=== PATIENT | female | born 1955 | race Caucasian/White ===

== ENCOUNTER → 2016-05-04 | Outpatient (CLI) | payer OTHER ==
[~2016-05-04] MED LIST: ASPI1TAB PO; CITRICAL; D 50CAP PO; FERR325T3 PO; FISH100049 PO; FLUOCINONIDE; FURO20TA2 PO; GELN10GE TD; GLUC1CAP9 PO; IRBE150T12 PO; KETO2CR EXT; MULTTAB PO; NYST10CR EXT; PRAV10TA PO; PROT1TAB2 PO; VALA500T PO; VITA100T86 PO; ZYRT10TA2 PO; [UNRECOGNIZED DRUG - CODE]; [UNRECOGNIZED DRUG - OTHER] PO
--- NOTE | 2016-05-05 11:23 | REP ---
Left knee five views: There are no comparisons. There is no fracture or dislocation. There is no hemarthrosis. Mineralization is normal. There is mild tricompartment osteoarthritis. There are no calcifications or foreign bodies. Signed by Blake Carlton MD 05/04/2016 02:51 P
== END ==
LOC: M WUC 14:19
PROVIDERS: ATTEND Physician Assistant
DX: S80.02XA Contusion of left knee, initial encounter (principal); X58.XXXA Exposure to other specified factors, initial encounter; Y92.89 Other specified places as the place of occurrence of the external cause; Y93.89 Activity, other specified; Y99.8 Other external cause status

== ENCOUNTER → 2016-06-01 | Outpatient (CLI) | payer OTHER ==
[2016-06-01 11:44] LABS: BASO # 0.1 K/mm3 (0.0-0.2); BASO % 1.5 % (0.0-1.0); EOS # 0.4 K/mm3 (0.0-0.50); EOS % 7.9 % (0.0-3.0); LARGE UNSTAINED CELL # 0.1 K/mm3 (0.0-0.4); LARGE UNSTAINED CELL % 2.5 % (0.0-4.0); LYMPH # 1.6 K/mm3 (1.5-4.5); MEAN CORPUSCULAR HEMOGLOBIN 33.3 pg (27.0-33.0); MEAN CORPUSCULAR HGB CONC 33.1 g/dl (32.0-36.5); MEAN CORPUSCULAR VOLUME 100.6 fl (80.0-96.0); MONO # 0.3 K/mm3 (0.0-0.8); MONO % 6.4 % (0.0-5.0); NEUTROPHILS # 2.6 K/mm3 (1.8-7.7); NEUTROPHILS % 52.8 % (36.0-66.0); PLATELET COUNT, AUTOMATED 317 k/mm3 (150-450); RED CELL DISTRIBUTION WIDTH 11.8 % (11.5-14.5)
[2016-06-01 12:09] LABS: ALBUMIN 3.8 GM/DL (3.2-5.2); ALBUMIN/GLOBULIN RATIO 1.23 (1.00-1.93); ALKALINE PHOSPHATASE 85 U/L (45-117); ALT/SGPT 26 U/L (12-78); ANION GAP 9 MEQ/L (8-16); AST/SGOT 15 U/L (15-37); BILIRUBIN,TOTAL 0.6 MG/DL (0.2-1.0); BLOOD UREA NITROGEN 20 MG/DL (7-18); CARBON DIOXIDE LEVEL 29 MEQ/L (21-32); CHLORIDE LEVEL 107 MEQ/L (98-107); CHOLESTEROL LEVEL 181 MG/DL (<200); GLOMERULAR FILTRATION RATE > 60.0 (>51); GLUCOSE, FASTING 87 MG/DL (70-105); POTASSIUM SERUM 4.6 MEQ/L (3.5-5.1); SODIUM LEVEL 145 MEQ/L (136-145); TOTAL PROTEIN 6.9 GM/DL (6.4-8.2); TRIGLYCERIDES LEVEL 75 MG/DL (<150)
== END ==
LOC: M WUC 10:25
PROVIDERS: ATTEND Nurse Practitioner Family
DX: I10 Essential (primary) hypertension (principal); E78.00 Pure hypercholesterolemia, unspecified

== ENCOUNTER → 2016-07-02 | Outpatient (CLI) | payer OTHER ==
[~2016-07-02] MED LIST changes: +ISOVUE-370 76% 100ML VIAL (Q9967) As Ordered ONE
--- NOTE | 2016-07-02 10:00 | REP ---
CT ANGIO NECK: HISTORY: Right brachiocephalic artery aneurysm. CONTRAST: Isovue 370, 75 mL. COMPARISON: 03/23/2013. A calcified atherosclerotic plaque is present at the origin of the right internal carotid artery. There is mild stenosis of 10% of the right internal carotid artery at its origin. The origin of the right external carotid artery is normal. A calcified atherosclerotic plaque is present at the origin of the left internal carotid artery. There is no significant stenosis. The origin of the left external carotid artery is normal. The vertebral arteries are equal in size and patent. Calcified atherosclerotic plaques are present in the aortic arch. The origins of the left subclavian, left common carotid, innominate and right common carotid arteries are normal. There is at least mild stenosis at the origin of the right subclavian artery. The left vertebral artery arises from the aortic arch. There is minimal fusiform dilatation of the right brachiocephalic artery. IMPRESSION: 1. Mild stenosis of 10% of the right internal carotid artery at its origin. 2. Normal left carotid bifurcation. 3. There is minimal fusiform dilatation of the right brachiocephalic artery. Signed by Salomón Veras MD 07/02/2016 10:12 A
== END ==
LOC: M RAD 08:32
PROVIDERS: ATTEND Nurse Practitioner Family
DX: I72.0 Aneurysm of carotid artery (principal)
CPT/HCPCS: 70498; Q9967

== ENCOUNTER → 2016-07-10 | Outpatient (CLI) | payer OTHER ==
[~2016-07-10] MED LIST changes: -ISOVUE-370 76% 100ML VIAL (Q9967) As Ordered ONE
--- NOTE | 2016-07-10 18:11 | REP ---
CT of the left knee without IV contrast: Comparison is the plain film study dated 05/04/2016. Axial images are acquired helical scanning and reformatted sagittal coronal projections. There are small osteophytes at the margins of the patella, femoral condyles and tibial plateau compatible with mild tricompartment osteoarthritis. There is no joint space narrowing. There is no effusion. Mineralization is normal. There are no calcifications or foreign bodies. Impression: Tricompartment osteoarthritis. Radiographically, this appears mild. Signed by Blake Carlton MD 07/10/2016 06:03 P
== END ==
LOC: M RAD 17:09
PROVIDERS: ATTEND Physician Assistant Surgical
DX: M17.12 Unilateral primary osteoarthritis, left knee (principal)

== ENCOUNTER → 2016-12-05 | Outpatient (CLI) | payer OTHER ==
[~2016-12-05] MED LIST changes: -PRAV10TA PO; +PRAV10TA4 PO; -VALA500T PO; +VALA500T2 PO
--- NOTE | 2016-12-06 09:43 | REP ---
Clinical: Transient ischemic attack with history of hypertension. Technique: Reina scale and color Doppler evaluation using linear high frequency transducer Findings: Two-dimensional reina scale and color images demonstrate mild age-related intimal thickening and minimal mixed atheromatous plaquing with laminar flow and no appreciable narrowing. Color Doppler interrogation demonstrates normal arterial wave patterns and velocities with mild spectral broadening. Normal flow direction is appreciated in the bilateral vertebral arteries. RIGHT (cm/s) LEFT (cm/s) ICA peak systolic velocity 83.4 78.4 ICA diastolic velocity 34.1 27.7 ECA peak systolic velocity 71.7 75.3 CCA peak systolic velocity 82.3 77.1 ICA/CCA ratio 1.0 1.0 Impression: No hemodynamically significant areas of narrowing or stenosis appreciated. Based on set standards narrowing falls within the less than 50% range. Signed by Olvin Bhagat MD 12/06/2016 09:34 A
== END ==
LOC: M RAD 16:06
PROVIDERS: ATTEND Nurse Practitioner Family
DX: R55 Syncope and collapse (principal)

== ENCOUNTER → 2016-12-07 | Outpatient (CLI) | payer OTHER ==
[2016-12-07 18:20] LABS: BASO # 0.1 K/mm3 (0.0-0.2); BASO % 1.4 % (0.0-1.0); EOS # 0.3 K/mm3 (0.0-0.50); EOS % 6.9 % (0.0-3.0); LARGE UNSTAINED CELL # 0.1 K/mm3 (0.0-0.4); LARGE UNSTAINED CELL % 2.8 % (0.0-4.0); LYMPH # 1.5 K/mm3 (1.5-4.5); LYMPH % 34.3 % (24.0-44.0); MEAN CORPUSCULAR HEMOGLOBIN 34.2 pg (27.0-33.0); MEAN CORPUSCULAR HGB CONC 33.3 g/dl (32.0-36.5); MEAN CORPUSCULAR VOLUME 102.6 fl (80.0-96.0); MONO # 0.3 K/mm3 (0.0-0.8); MONO % 7.5 % (0.0-5.0); NEUTROPHILS # 2.1 K/mm3 (1.8-7.7); NEUTROPHILS % 47.1 % (36.0-66.0); PLATELET COUNT, AUTOMATED 316 k/mm3 (150-450); RED CELL DISTRIBUTION WIDTH 11.8 % (11.5-14.5); WHITE BLOOD COUNT 4.4 K/mm3 (4.0-10.0)
[2016-12-07 18:42] LABS: ALBUMIN 3.9 GM/DL (3.2-5.2); ALBUMIN/GLOBULIN RATIO 1.22 (1.00-1.93); ALKALINE PHOSPHATASE 86 U/L (45-117); ALT/SGPT 26 U/L (12-78); ANION GAP 9 MEQ/L (8-16); AST/SGOT 12 U/L (15-37); BILIRUBIN,TOTAL 0.5 MG/DL (0.2-1.0); BLOOD UREA NITROGEN 23 MG/DL (7-18); CARBON DIOXIDE LEVEL 29 MEQ/L (21-32); CHLORIDE LEVEL 107 MEQ/L (98-107); CHOLESTEROL LEVEL 183 MG/DL (<200); GLOMERULAR FILTRATION RATE > 60.0 (>45); GLUCOSE, FASTING 88 MG/DL (80-110); POTASSIUM SERUM 4.7 MEQ/L (3.5-5.1); SODIUM LEVEL 145 MEQ/L (136-145); TOTAL PROTEIN 7.1 GM/DL (6.4-8.2); TRIGLYCERIDES LEVEL 51 MG/DL (<150)
== END ==
LOC: M WUC 09:10
PROVIDERS: ATTEND Nurse Practitioner Family
DX: I10 Essential (primary) hypertension (principal); E21.3 Hyperparathyroidism, unspecified; E55.9 Vitamin D deficiency, unspecified; Z13.1 Encounter for screening for diabetes mellitus

== ENCOUNTER → 2017-08-08 | Outpatient (REF) | payer OTHER | LOC: M LABWUC 14:28 | DX: M54.5 Low back pain (principal) ==

== ENCOUNTER → 2017-08-14 | Outpatient (REF) | payer OTHER ==
[2017-08-14 16:32] LABS: APPEARANCE, URINE CLEAR (CLEAR); BACTERIA, URINE AUTO NEGATIVE (NEGATIVE); BILIRUBIN, URINE AUTO NEGATIVE (NEGATIVE); BLOOD, URINE BLOOD NEGATIVE (NEGATIVE); COLOR, URINE COLORLESS (YELLOW); GLUCOSE, URINE (UA) AUTO NEGATIVE (NEGATIVE); KETONE, URINE AUTO NEGATIVE (NEGATIVE); LEUKOCYTE ESTERASE, URINE AUTO NEGATIVE (NEGATIVE); NITRITE, URINE AUTO NEGATIVE (NEGATIVE); PROTEIN, URINE AUTO NEGATIVE (NEGATIVE); RBC, URINE AUTO 0 /HPF (0-3); SPECIFIC GRAVITY URINE AUTO 1.002 (1.002-1.035); SQUAMOUS EPITHELIAL CELL UR AU 0 /HPF (0-6); UROBILINOGEN, URINE AUTO 0.2 mg/dL (0.0-2.0); WBC, URINE AUTO 0 /HPF (0-3)
== END ==
LOC: M LAB REF 16:21
DX: N32.81 Overactive bladder (principal); N39.41 Urge incontinence

== ENCOUNTER → 2018-01-04 | Outpatient (REF) | payer OTHER ==
[2018-01-04 12:39] LABS: HEMATOCRIT 36.5 % (36.0-47.0); MEAN CORPUSCULAR HEMOGLOBIN 33.2 pg (27.0-33.0); MEAN CORPUSCULAR HGB CONC 32.9 g/dl (32.0-36.5); MEAN CORPUSCULAR VOLUME 101.1 fl (80.0-96.0); PLATELET COUNT, AUTOMATED 300 10^3/uL (150-450); RED BLOOD COUNT 3.61 10^6/uL (4.00-5.40); RED CELL DISTRIBUTION WIDTH 12.1 % (11.5-14.5); WHITE BLOOD COUNT 4.7 10^3/uL (4.0-10.0)
[2018-01-04 13:01] LABS: ALBUMIN 3.9 GM/DL (3.2-5.2); ALBUMIN/GLOBULIN RATIO 1.39 (1.00-1.93); ALKALINE PHOSPHATASE 71 U/L (45-117); ALT/SGPT 23 U/L (12-78); ANION GAP 6 MEQ/L (8-16); AST/SGOT 15 U/L (7-37); BILIRUBIN,TOTAL 0.4 MG/DL (0.2-1.0); BLOOD UREA NITROGEN 26 MG/DL (7-18); CALCIUM LEVEL 9.3 MG/DL (8.8-10.2); CARBON DIOXIDE LEVEL 30 MEQ/L (21-32); CHLORIDE LEVEL 104 MEQ/L (98-107); CHOLESTEROL LEVEL 208 MG/DL (<200); CHOLESTEROL RISK RATIO 2.476 (<5); CREATININE FOR GFR 0.72 MG/DL (0.55-1.30); FERRITIN 183 NG/ML (8-252); GLOMERULAR FILTRATION RATE > 60.0 (>45); GLUCOSE, FASTING 85 MG/DL (70-100); HDL CHOLESTEROL 84 MG/DL (>40); IRON (FE) 158 UG/DL (50-170); LDL CHOLESTEROL 114 MG/DL (<100); MAGNESIUM LEVEL 2.3 MG/DL (1.8-2.4); NON-HDL-C 124 MG/DL; PERCENT SATURATION 55.2 % (13.2-45.0); POTASSIUM SERUM 4.7 MEQ/L (3.5-5.1); SODIUM LEVEL 140 MEQ/L (136-145); TOTAL IRON BINDING CAPACITY 286 UG/DL (250-450); TOTAL PROTEIN 6.7 GM/DL (6.4-8.2); TRIGLYCERIDES LEVEL 49 MG/DL (<150)
[2018-01-04 13:36] LABS: TOTAL 25(OH) VITAMIN D 52.2 NG/ML (30.0-100.0)
[2018-01-04 13:39] LABS: CREATININE, URINE 96.9 MG/DL; MALB URINE SIEMENS 6.3 MG/L
[2018-01-04 13:45] LABS: MAU/CREAT RATIO 6.5 MCG/MG (0.0-30.0)
== END ==
LOC: M SFHCPLAZ 09:10
DX: D50.8 Other iron deficiency anemias (principal); G47.33 Obstructive sleep apnea (adult) (pediatric); R25.2 Cramp and spasm; E55.9 Vitamin D deficiency, unspecified; I10 Essential (primary) hypertension; E78.00 Pure hypercholesterolemia, unspecified

== ENCOUNTER → 2018-03-17 | Outpatient (CLI) | payer OTHER ==
[2018-03-17 13:38] LABS: FOLATE > 24.0 NG/ML; FREE T4 1.01 NG/DL (0.76-1.46); VITAMIN B12 LEVEL 925 PG/ML
== END ==
LOC: M WUC 10:23
DX: G47.62 Sleep related leg cramps (principal)
CPT/HCPCS: 82746

== ENCOUNTER → 2018-10-10 | Outpatient (CLI) | payer OTHER ==
[~2018-10-10] MED LIST changes: -ASPI1TAB PO; +ASPI81TA26 PO; +FLUO1SOL; -GELN10GE TD; -VALA500T2 PO; +VALA500T5 PO; +ZYRT10CA5 PO; -ZYRT10TA2 PO; -[UNRECOGNIZED DRUG - CODE]; +[UNRECOGNIZED DRUG - CODE] TD
[2018-10-10 17:30] LABS: EOS # 0.2 10^3/uL (0.0-0.50); EOS % 4.5 % (0.0-3.0); HEMATOCRIT 38.9 % (36.0-47.0); HEMOGLOBIN 12.7 g/dl (12.0-15.5); LYMPH # 0.8 10^3/uL (1.5-4.5); MEAN CORPUSCULAR HEMOGLOBIN 34.2 pg (27.0-33.0); MEAN CORPUSCULAR HGB CONC 32.6 g/dl (32.0-36.5); MEAN CORPUSCULAR VOLUME 104.9 fl (80.0-96.0); MONO # 0.5 10^3/uL (0.0-0.8); MONO % 11.8 % (0.0-5.0); NEUTROPHILS # 2.5 10^3/uL (1.8-7.7); NEUTROPHILS % 62.4 % (36.0-66.0); PLATELET COUNT, AUTOMATED 239 10^3/uL (150-450); RED BLOOD COUNT 3.71 10^6/uL (4.00-5.40)
[2018-10-10 17:45] LABS: ALBUMIN 3.9 GM/DL (3.2-5.2); ALT/SGPT 32 U/L (12-78); BILIRUBIN,TOTAL 0.2 MG/DL (0.2-1.0); BLOOD UREA NITROGEN 16 MG/DL (7-18); CALCIUM LEVEL 8.3 MG/DL (8.8-10.2); CARBON DIOXIDE LEVEL 29 MEQ/L (21-32); CHLORIDE LEVEL 104 MEQ/L (98-107); CREATININE FOR GFR 0.59 MG/DL (0.55-1.30); FREE T4 0.85 NG/DL (0.76-1.46); GLOMERULAR FILTRATION RATE > 60.0 (>45); GLUCOSE, FASTING 74 MG/DL (70-100); POTASSIUM SERUM 4.4 MEQ/L (3.5-5.1); SODIUM LEVEL 142 MEQ/L (136-145)
[2018-10-13 00:06] LABS: Lyme Disease IgG/IgM Antibodie <0.91 ISR (0.00-0.90); Lyme Disease IgM Ab Quantitati <0.80 index (0.00-0.79)
== END ==
LOC: M WUC 13:35
PROVIDERS: ATTEND Physician Assistant
DX: R53.83 Other fatigue (principal); M79.10 Myalgia, unspecified site

== ENCOUNTER → 2018-10-19 | Outpatient (CLI) | payer OTHER ==
--- NOTE | 2018-10-19 16:53 | REP ---
Left foot series: Four views. History: Pain. Findings: Four views of the left foot demonstrate Achilles and plantar calcaneal spurring. There is moderate soft tissue swelling about the fifth toe. There is a nondisplaced intra-articular fracture of the fused middle and distal phalanges at the PIP joint. No other fracture is seen. Minimal spurring is seen at the first MTP joint. Impression: Fifth toe phalangeal fracture at the PIP joint. The fracture is seen in the fused middle and distal phalanges. Electronically Signed by Marko Andrade MD 10/19/2018 04:44 P
== END ==
LOC: M WUC 15:16
PROVIDERS: ATTEND Family Medicine
DX: M25.579 Pain in unspecified ankle and joints of unspecified foot (principal)

== ENCOUNTER → 2018-11-02 | Outpatient (CLI) | payer OTHER ==
[2018-11-02 18:32] LABS: BASO # 0.1 10^3/uL (0.0-0.2); BASO % 0.6 % (0.0-1.0); EOS # 0.1 10^3/uL (0.0-0.50); EOS % 1.1 % (0.0-3.0); HEMATOCRIT 36.7 % (36.0-47.0); LYMPH # 2.4 10^3/uL (1.5-4.5); LYMPH % 30.2 % (24.0-44.0); MEAN CORPUSCULAR HEMOGLOBIN 34.4 pg (27.0-33.0); MEAN CORPUSCULAR HGB CONC 32.7 g/dl (32.0-36.5); MEAN CORPUSCULAR VOLUME 105.2 fl (80.0-96.0); MONO # 0.7 10^3/uL (0.0-0.8); MONO % 8.3 % (0.0-5.0); NEUTROPHILS # 4.7 10^3/uL (1.8-7.7); NEUTROPHILS % 59.5 % (36.0-66.0); PLATELET COUNT, AUTOMATED 311 10^3/uL (150-450); RED BLOOD COUNT 3.49 10^6/uL (4.00-5.40); WHITE BLOOD COUNT 7.9 10^3/uL (4.0-10.0)
[2018-11-02 18:52] LABS: TOTAL PROTEIN 7.1 GM/DL (6.4-8.2)
[2018-11-02 19:01] LABS: VITAMIN B12 LEVEL 1021 PG/ML
[2018-11-02 19:02] LABS: FOLATE > 24.0 NG/ML
[2018-11-04 10:31] LABS: ALBUMIN 4.41 GM/DL (3.29-5.55); ALBUMIN % 62.1 % (55.8-66.1); ALPHA-1-GLOBULIN % 3.4 % (2.9-4.9); ALPHA-1-GLOBULINS 0.24 GM/DL (0.17-0.41); ALPHA-2-GLOBULINS 0.84 GM/DL (0.42-0.99); ALPHA-2-GLOBULINS % 11.9 % (7.1-11.8); BETA-1-GLOBULINS 0.42 GM/DL (0.28-0.60); BETA-1-GLOBULINS % 5.9 % (4.7-7.2); BETA-2-GLOBULINS 0.36 GM/DL (0.19-0.55); BETA-2-GLOBULINS % 5.1 % (3.2-6.5); GAMMA GLOBULIN % 11.6 % (11.1-18.8); GAMMA GLOBULINS 0.82 GM/DL (0.65-1.58)
[2018-11-05 11:07] LABS: HOMOCYST(E)INE SERUM 9.5 umol/L (0.0-15.0)
== END ==
LOC: M WUC 16:28
PROVIDERS: ATTEND Family Medicine
DX: D75.89 Other specified diseases of blood and blood-forming organs (principal)

== ENCOUNTER → 2019-01-27 | Outpatient (CLI) | payer OTHER ==
--- NOTE | 2019-01-27 11:52 | REP ---
Right lower extremity Duplex Doppler venous ultrasound: Real time compression and duplex Doppler interrogation of the right lower extremity deep venous system is performed. The right common femoral, superficial femoral and popliteal veins are fully compressible with transducer pressure and demonstrate normal spontaneous and phasic flow, without evidence of deep venous thrombosis. Impression: No evidence of deep venous thrombosis of the right lower extremity femoral popliteal venous system. Electronically Signed by Blake Reina MD 01/27/2019 11:44 A
== END ==
LOC: M RAD 11:07
PROVIDERS: ATTEND Physician Assistant Surgical
DX: M25.561 Pain in right knee (principal)

== ENCOUNTER → 2019-02-14 | Outpatient (CLI) | payer OTHER ==
[2019-02-14 12:42] LABS: BASO # 0.1 10^3/uL (0.0-0.2); EOS # 0.3 10^3/uL (0.0-0.5); EOS % 7.4 % (0.0-3.0); HEMATOCRIT 36.1 % (36.0-47.0); HEMOGLOBIN 11.6 g/dl (12.0-15.5); LYMPH # 1.8 10^3/uL (1.5-5.0); LYMPH % 39.1 % (24.0-44.0); MEAN CORPUSCULAR HEMOGLOBIN 33.7 pg (27.0-33.0); MEAN CORPUSCULAR HGB CONC 32.1 g/dl (32.0-36.5); MEAN CORPUSCULAR VOLUME 104.9 fl (80.0-96.0); MONO # 0.4 10^3/uL (0.0-0.8); MONO % 8.7 % (0.0-5.0); NEUTROPHILS % 42.6 % (36.0-66.0); PLATELET COUNT, AUTOMATED 279 10^3/uL (150-450); RED BLOOD COUNT 3.44 10^6/uL (4.00-5.40); WHITE BLOOD COUNT 4.6 10^3/uL (4.0-10.0)
[2019-02-14 13:00] LABS: ALBUMIN 3.4 GM/DL (3.2-5.2); ALT/SGPT 24 U/L (12-78); BILIRUBIN,TOTAL 0.5 MG/DL (0.2-1.0); BLOOD UREA NITROGEN 24 MG/DL (7-18); CALCIUM LEVEL 8.8 MG/DL (8.8-10.2); CARBON DIOXIDE LEVEL 31 MEQ/L (21-32); CHLORIDE LEVEL 105 MEQ/L (98-107); CREATININE FOR GFR 0.74 MG/DL (0.55-1.30); FERRITIN 210 NG/ML (8-252); GLOMERULAR FILTRATION RATE > 60.0 (>45); GLUCOSE, FASTING 81 MG/DL (70-100); IRON (FE) 173 UG/DL (50-170); PERCENT SATURATION 57.5 % (13.2-45.0); POTASSIUM SERUM 4.2 MEQ/L (3.5-5.1); SODIUM LEVEL 141 MEQ/L (136-145); TOTAL 25(OH) VITAMIN D 56.1 NG/ML (30.0-100.0); TOTAL IRON BINDING CAPACITY 301 UG/DL (250-450); TOTAL PROTEIN 6.1 GM/DL (6.4-8.2)
== END ==
LOC: M WUC 09:12
PROVIDERS: ATTEND Family Medicine
DX: E55.9 Vitamin D deficiency, unspecified (principal); R60.0 Localized edema; D50.8 Other iron deficiency anemias

== ENCOUNTER → 2019-03-22 | Outpatient (CLI) | payer OTHER ==
[2019-03-22 17:19] LABS: BASO # 0.1 10^3/uL (0.0-0.2); BASO % 1.2 % (0.0-1.0); EOS # 0.2 10^3/uL (0.0-0.5); EOS % 3.8 % (0.0-3.0); HEMATOCRIT 36.1 % (36.0-47.0); HEMOGLOBIN 11.9 g/dl (12.0-15.5); LYMPH # 2.1 10^3/uL (1.5-5.0); LYMPH % 36.9 % (24.0-44.0); MEAN CORPUSCULAR HEMOGLOBIN 33.2 pg (27.0-33.0); MEAN CORPUSCULAR VOLUME 100.8 fl (80.0-96.0); MONO # 0.6 10^3/uL (0.0-0.8); MONO % 9.6 % (0.0-5.0); NEUTROPHILS # 2.8 10^3/uL (1.5-8.5); NEUTROPHILS % 48.2 % (36.0-66.0); PLATELET COUNT, AUTOMATED 321 10^3/uL (150-450); RED BLOOD COUNT 3.58 10^6/uL (4.00-5.40); WHITE BLOOD COUNT 5.7 10^3/uL (4.0-10.0)
[2019-03-22 17:25] LABS: ALT/SGPT 23 U/L (12-78); BILIRUBIN,TOTAL 0.4 MG/DL (0.2-1.0); BLOOD UREA NITROGEN 15 MG/DL (7-18); CALCIUM LEVEL 9.5 MG/DL (8.8-10.2); CARBON DIOXIDE LEVEL 29 MEQ/L (21-32); CHLORIDE LEVEL 105 MEQ/L (98-107); CREATININE FOR GFR 0.73 MG/DL (0.55-1.30); FOLATE > 24.0 NG/ML; FREE T4 1.05 NG/DL (0.76-1.46); GLOMERULAR FILTRATION RATE > 60.0 (>45); GLUCOSE, FASTING 66 MG/DL (70-100); POTASSIUM SERUM 4.4 MEQ/L (3.5-5.1); RHEUMATOID FACTOR QUANT < 10.0 IU/ML (<15.0); SODIUM LEVEL 142 MEQ/L (136-145); TOTAL PROTEIN 7.1 GM/DL (6.4-8.2); VITAMIN B12 LEVEL 840 PG/ML
[2019-03-22 18:05] LABS: ERYTHROCYTE SEDIMENTATION RATE 7 mm/hr (0-30)
[2019-03-22 20:05] LABS: HEMOGLOBIN A1c 4.9 %
== END ==
LOC: M WUC 15:08
PROVIDERS: ATTEND Psychiatry & Neurology Neurology
DX: E11.9 Type 2 diabetes mellitus without complications (principal); E07.9 Disorder of thyroid, unspecified

== ENCOUNTER → 2019-11-10 | Outpatient (REF) | payer OTHER ==
[~2019-11-10] MED LIST changes: -IRBE150T12 PO; +IRBE150T7 PO
== END ==
LOC: M LAB REF 11:29
PROVIDERS: ATTEND Dermatology
DX: L81.4 Other melanin hyperpigmentation (principal); L57.0 Actinic keratosis; L30.8 Other specified dermatitis

== ENCOUNTER → 2019-12-02 | Outpatient (REF) | payer OTHER | LOC: M LAB REF 16:56 | PROVIDERS: ATTEND Nurse Practitioner Family | DX: M54.9 Dorsalgia, unspecified (principal) ==

== ENCOUNTER → 2019-12-02 | Outpatient (CLI) | payer OTHER ==
--- NOTE | 2020-01-03 07:01 | REP ---
T SPINE SERIES: 3-VIEWS HISTORY: Severe mid back pain. No known injury. COMPARISON: 06/01/2013. FINDINGS: Thoracic vertebral body heights are maintained. There is progressive degenerative disc disease diffusely. Thoracic kyphosis is slightly more pronounced. No wedge compression deformity is seen, however. No fracture is noted. No paravertebral soft tissue mass is seen. Pedicles and posterior elements are intact. Embolic coil material is visible in the prevertebral soft tissues of the upper lumbar spine on the lateral view. Swimmers lateral view shows no additional abnormality. IMPRESSION: There is some progression of degenerative disc disease diffusely in the thoracic spine. No acute abnormality MTDD
== END ==
LOC: M WUC 14:40
PROVIDERS: ATTEND Nurse Practitioner Family
DX: M54.9 Dorsalgia, unspecified (principal)

== ENCOUNTER → 2020-09-07 | Outpatient (CLI) | payer OTHER | LOC: M LABSMTC 11:48 | PROVIDERS: ATTEND Pediatrics | DX: Z20.828 Contact with and (suspected) exposure to other viral communicable diseases (principal) ==

== ENCOUNTER → 2020-09-26 | Outpatient (REF) | payer OTHER ==
[2020-09-26 18:31] LABS: APPEARANCE, URINE CLEAR (CLEAR); BACTERIA, URINE AUTO NEGATIVE (NEGATIVE); BILIRUBIN, URINE AUTO NEGATIVE (NEGATIVE); BLOOD, URINE BLOOD NEGATIVE (NEGATIVE); COLOR, URINE YELLOW (YELLOW); GLUCOSE, URINE (UA) AUTO NEGATIVE (NEGATIVE); KETONE, URINE AUTO NEGATIVE (NEGATIVE); LEUKOCYTE ESTERASE, URINE AUTO NEGATIVE (NEGATIVE); NITRITE, URINE AUTO NEGATIVE (NEGATIVE); PROTEIN, URINE AUTO NEGATIVE (NEGATIVE); RBC, URINE AUTO 3 /HPF (0-3); SPECIFIC GRAVITY URINE AUTO 1.021 (1.002-1.035); SQUAMOUS EPITHELIAL CELL UR AU 0 /HPF (0-6); UROBILINOGEN, URINE AUTO 0.2 mg/dL (0.0-2.0); WBC, URINE AUTO 1 /HPF (0-3)
== END ==
LOC: M LAB REF 15:59
PROVIDERS: ATTEND Obstetrics & Gynecology
DX: N32.81 Overactive bladder (principal)

== ENCOUNTER → 2020-11-23 | Outpatient (CLI) | payer OTHER ==
--- NOTE | 2020-11-23 13:06 | REP ---
INDICATION: LT KNEE SOFT TISSUE MASS. COMPARISON: None. TECHNIQUE: Real-time sonographic evaluation of left popliteal fossa are performed. FINDINGS: Fluid is seen at the posteromedial joint margin measuring 3.4 x 2.1 x 3.1 cm. More superficially there is a Alcantara's cyst which measures 3.1 x 0.9 cm. IMPRESSION: Small joint effusion with small associated Alcantara's cyst in the medial popliteal fossa. <Electronically signed by Blake Reina > 11/23/20 0810
== END ==
LOC: M RAD 11:14
PROVIDERS: ATTEND Family Medicine
DX: M25.462 Effusion, left knee (principal); M71.22 Synovial cyst of popliteal space [Baker], left knee

== ENCOUNTER → 2020-12-21 | Outpatient (CLI) | payer OTHER ==
--- NOTE | 2020-12-22 13:14 | ECHO ---
ECHOCARDIOGRAM DATE OF PROCEDURE: 12/21/2020 Age: 65 Gender: Female Height: 62 inches Weight: 226 pounds Body Surface Area: 2.01 m2 PATIENT LOCATION: Outpatient. REFERRING PHYSICIAN: Gurjit Ortiz M.D. INDICATION: Heart murmur, hypertension, obstructive sleep apnea. MEASUREMENTS: 2D Measurements: RV - 3.5 cm LV - 4.5 cm Septum 1.2 cm Posterior wall 1.1 cm Aortic root 3.4 cm Ascending aorta 3.6 cm LA - 3.9 cm LVEF 70% Doppler Measurements: AV - 1.7 m/sec LVOT 1.4 m/sec LVOT diameter 1.9 cm MV-E 70, A 104, EA ratio 0.7 Early mitral deceleration time 239 msec E prime medial 6.2 A prime medial 13 E prime lateral 8.9 Average E/E prime ratio 9.3/PCWP - 13.4 mmHg PV - 0.8 m/sec Pulmonary artery acceleration time 95 msec RVSP 39 mmHg IVC - 1.2 cm COMMENTS: Normal sinus rhythm without intraventricular disturbance. Fairly good image quality despite her weight problem. M-mode and 2-dimensional echocardiography was performed with pulse, continuous wave and color flow Doppler study. Tissue Doppler was also performed. Left ventricular wall thickness was upper limits of normal with normal left ventricular size and hyperkinetic wall motion. Left atrium was upper limits of normal in size with grade 1 left ventricular (LV) diastolic dysfunction, but currently normal mean left atrial pressure. Normal right heart chamber sizes and motion with Doppler evidence of pulmonary hypertension. Normal inferior vena cava (IVC) size and collapse against an elevated central venous pressure. Normal aortic root size, but proximal ascending aorta upper limits of normal in size. Normal appearing aortic valve and function. Normal appearing mitral valvular apparatus with normal leaflet excursion and no posterior systolic buckling, yet mild posteriorly directed insufficiency. Normal appearing tricuspid valve with mild insufficiency. No apparent intracardiac mass or pleural effusion.
== END ==
LOC: M CARPUL 08:30
PROVIDERS: ATTEND Family Medicine
DX: M79.89 Other specified soft tissue disorders (principal)

== ENCOUNTER → 2022-10-01 | Outpatient (CLI) | payer MEDICARE, OTHER ==
[~2022-10-01] MED LIST changes: +NYST-13 EXT; -NYST10CR EXT
[2022-10-01 17:31] LABS: HEMATOCRIT 37.1 % (36.0-47.0); HEMOGLOBIN 12.3 g/dl (12.0-15.5); MEAN CORPUSCULAR HGB CONC 33.2 g/dl (32.0-36.5); MEAN CORPUSCULAR VOLUME 102.5 fl (80.0-96.0); PLATELET COUNT, AUTOMATED 311 10^3/uL (150-450); RED BLOOD COUNT 3.62 10^6/uL (4.00-5.40); WHITE BLOOD COUNT 8.1 10^3/uL (4.0-10.0)
[2022-10-01 17:52] LABS: BLOOD UREA NITROGEN 22 MG/DL (9-23); CALCIUM LEVEL 10.1 MG/DL (8.3-10.6); CARBON DIOXIDE LEVEL 28 MMOL/L (20-31); CHLORIDE LEVEL 104 MMOL/L (98-107); CREATININE FOR GFR 0.81 MG/DL (0.55-1.30); GLOMERULAR FILTRATION RATE > 60.0 (>45); GLUCOSE, FASTING 68 MG/DL (74-106); POTASSIUM SERUM 4.2 MMOL/L (3.5-5.1); SODIUM LEVEL 138 MMOL/L (136-145)
== END ==
LOC: M RAD 16:03
PROVIDERS: ATTEND Physician Assistant
DX: Z01.818 Encounter for other preprocedural examination (principal); I51.7 Cardiomegaly

== ENCOUNTER → 2022-10-17 | Outpatient (REF) | payer MEDICARE, OTHER ==
[~2022-10-17] MED LIST changes: +ATOR1TAB21 PO; +CLOB0.0548 TOP; +D 50CAP2 PO; +FAMO40TA3 PO; +GINGER PO; +LEVO50TA5 PO; +MULT1TAB14 PO; +OSPH1TAB PO; +OXYB10TA23 PO; +PANT40TA29 PO; +TIZA4CAP PO; +TURMERIC PO; +VITA400C83 PO; +ZYRTTAB8 PO
[2022-10-17 16:38] LABS: APPEARANCE, URINE CLEAR (CLEAR); BACTERIA, URINE AUTO NEGATIVE (NEGATIVE); BILIRUBIN, URINE AUTO NEGATIVE (NEGATIVE); BLOOD, URINE BLOOD NEGATIVE (NEGATIVE); COLOR, URINE YELLOW (YELLOW); GLUCOSE, URINE (UA) AUTO NEGATIVE (NEGATIVE); KETONE, URINE AUTO NEGATIVE (NEGATIVE); LEUKOCYTE ESTERASE, URINE AUTO NEGATIVE (NEGATIVE); MUCUS, URINE SMALL (NEGATIVE); NITRITE, URINE AUTO NEGATIVE (NEGATIVE); PROTEIN, URINE AUTO NEGATIVE (NEGATIVE); RBC, URINE AUTO 0 /HPF (0-3); SPECIFIC GRAVITY URINE AUTO 1.008 (1.002-1.035); SQUAMOUS EPITHELIAL CELL UR AU 0 /HPF (0-6); UROBILINOGEN, URINE AUTO 0.2 mg/dL (0.0-2.0); WBC, URINE AUTO 0 /HPF (0-3)
== END ==
LOC: M LABWUC 16:16 → M SMT 16:16
PROVIDERS: ATTEND Physician Assistant
DX: Z01.818 Encounter for other preprocedural examination (principal); Z79.899 Other long term (current) drug therapy

== ENCOUNTER 2022-10-27 09:18 | Day surgery (SDC) | payer MEDICARE, OTHER ==
[~2022-10-27] VITALS: Ht 160 cm; Wt 104.1 kg
[~2022-10-27 09:18] MED LIST changes: +ceFAZolin SOD 2 GM in IV 1 EA IV ONE
[2022-10-27] MEDS ORDERED: propofoL 200 MG/20 ML VIAL As Ordered ONE (12:05)
[2022-10-27] MEDS ORDERED: fentaNYL 100 MCG/2 ML INJECTION As Ordered ONE (12:05)
[2022-10-27] MEDS ORDERED: dexmedeTOMIDine (4MCG/ML)200MCG/50ML BTL (PRECEDEX) As Ordered ONE (12:05)
[2022-10-27] MEDS ORDERED: MIDAZOLAM INJ 2MG/2ML VIAL As Ordered ONE (12:05)
[2022-10-27] MEDS ORDERED: LIDOCAINE 2% 100MG/5ML SDV (FOR ANES.) As Ordered ONE (12:07)
[2022-10-27] MEDS ORDERED: ONDANSETRON 4MG 2ML VIAL As Ordered ONE (12:07)
[2022-10-27] MEDS ORDERED: ACETAMINOPHEN 1000MG 100ML IV BAG As Ordered ONE (12:07)
[2022-10-27] MEDS ORDERED: ceFAZolin 1GM VIAL As Ordered ONE (12:40)
[2022-10-27] MEDS ORDERED: LIDOCAINE 1% SDV 30ML VIAL As Ordered ONE (12:40)
[2022-10-27] MEDS ORDERED: HYDR-3715 PO (13:51)
[2022-10-27] MEDS ORDERED: CEPH500C PO (13:51)
[2022-10-27 14:23] VITALS: BP 157/81; TEMP 98.9; O2SAT 96
== END 2022-10-27 14:28 | disposition home or self-care (01) ==
LOC: M SDC 09:18
PROVIDERS: ATTEND Urology
DX: Z45.42 Encounter for adjustment and management of neurostimulator (principal); T83.110A Breakdown (mechanical) of urinary electronic stimulator device, initial encounter; Y73.2 Prosthetic and other implants, materials and accessory gastroenterology and urology devices associated with adverse incidents; N32.81 Overactive bladder; I10 Essential (primary) hypertension; E78.00 Pure hypercholesterolemia, unspecified; K21.9 Gastro-esophageal reflux disease without esophagitis; K59.00 Constipation, unspecified; E03.9 Hypothyroidism, unspecified; K57.90 Diverticulosis of intestine, part unspecified, without perforation or abscess without bleeding; N90.4 Leukoplakia of vulva; M81.0 Age-related osteoporosis without current pathological fracture; G25.0 Essential tremor; G47.30 Sleep apnea, unspecified; Z87.891 Personal history of nicotine dependence; Z88.1 Allergy status to other antibiotic agents; Z88.2 Allergy status to sulfonamides; Z79.899 Other long term (current) drug therapy; Z79.82 Long term (current) use of aspirin; Z79.890 Hormone replacement therapy
CPT/HCPCS: 64590; 76000; C1778; J0131; J0690; J1100; J2250; J2405; J3010

== ENCOUNTER → 2022-12-17 | Outpatient (REF) | payer MEDICARE, OTHER ==
[~2022-12-17] MED LIST changes: +CEPH500C PO; +HYDR-3715 PO; -ceFAZolin SOD 2 GM in IV 1 EA IV ONE
== END ==
LOC: M SFHCWAGY 17:53
PROVIDERS: ATTEND Nurse Practitioner Family
DX: Z12.4 Encounter for screening for malignant neoplasm of cervix (principal)
CPT/HCPCS: 87624; G0123

== ENCOUNTER → 2023-08-29 | Outpatient (REF) | payer MEDICARE, OTHER ==
[~2023-08-29] MED LIST changes: +IRBE150T27 PO; -IRBE150T7 PO
== END ==
LOC: M LAB REF 17:19
PROVIDERS: ATTEND Physician Assistant
DX: N30.01 Acute cystitis with hematuria (principal)

== ENCOUNTER → 2023-09-03 | Outpatient (CLI) | payer MEDICARE, OTHER | LOC: M PLAIMG 12:57 | PROVIDERS: ATTEND Physician Assistant | DX: R10.9 Unspecified abdominal pain (principal) ==

== ENCOUNTER → 2023-10-26 | Outpatient (CLI) | payer MEDICARE, OTHER ==
[2023-10-26 17:16] LABS: BLOOD UREA NITROGEN 25 MG/DL (9-23); CREATININE FOR GFR 0.95 MG/DL (0.55-1.30); GLOMERULAR FILTRATION RATE > 60.0 (>45)
== END ==
LOC: M LAB 16:00
PROVIDERS: ATTEND Psychiatry & Neurology Neurology
DX: I10 Essential (primary) hypertension (principal)

== ENCOUNTER → 2023-10-29 | Outpatient (CLI) | payer MEDICARE, OTHER | LOC: M RAD 15:29 | PROVIDERS: ATTEND Psychiatry & Neurology Neurology | DX: I65.23 Occlusion and stenosis of bilateral carotid arteries (principal) ==

== ENCOUNTER → 2023-10-29 | Outpatient (CLI) | payer MEDICARE, OTHER ==
[~2023-10-29] MED LIST changes: +ISOVUE-370 76% 100ML VIAL As Ordered ONE
== END ==
LOC: M RAD 15:32
PROVIDERS: ATTEND Pain Medicine Interventional Pain Medicine
DX: M50.320 Other cervical disc degeneration, mid-cervical region, unspecified level (principal)
CPT/HCPCS: 72125; 72131; Q9967

== ENCOUNTER → 2023-12-23 | Outpatient (REF) | payer MEDICARE, OTHER ==
[~2023-12-23] MED LIST changes: -ISOVUE-370 76% 100ML VIAL As Ordered ONE
== END ==
LOC: M SFHCDERM 17:23
PROVIDERS: ATTEND Physician Assistant
DX: L43.9 Lichen planus, unspecified (principal)

== ENCOUNTER → 2024-01-08 | Outpatient (REF) | payer MEDICARE, OTHER ==
[~2024-01-08] MED LIST changes: +E-401CAP2 PO; -VITA400C83 PO
== END ==
LOC: M SFHCWAGY 12:46
PROVIDERS: ATTEND Nurse Practitioner Family
DX: N39.0 Urinary tract infection, site not specified (principal)

== ENCOUNTER → 2025-01-12 | Outpatient (REF) | payer MEDICARE, OTHER, BC ==
[~2025-01-12] MED LIST changes: -NYST-13 EXT; +NYST0.1C EXT; +PRAV10TA PO; -PRAV10TA4 PO
[2025-01-14 13:48] LABS: HPV APTIMA Not Detected (Not Detected)
== END ==
LOC: M SFHCWAGY 13:07
PROVIDERS: ATTEND Obstetrics & Gynecology
DX: Z12.4 Encounter for screening for malignant neoplasm of cervix (principal); Z11.51 Encounter for screening for human papillomavirus (HPV)
CPT/HCPCS: 87624; G0123